=== PATIENT | female | born 2005 | race Caucasian/White ===

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

== ENCOUNTER 2024-01-13 17:48 | Emergency (ER) | payer BC ==
[2024-01-13] MEDS ORDERED: ISOVUE-370 76% 100ML VIAL As Ordered ONE (18:17)
[2024-01-13] MEDS: ACETAMINOPHEN *IV* 1,000 MG in IV 1 EA IV ONE (19:02)
[2024-01-13 19:15] VITALS: TEMP 98
[2024-01-13 23:00] VITALS: BP 115/52; O2SAT 98
== END 2024-01-13 23:08 | disposition left against medical advice (07) ==
LOC: M ED 17:48 → EDBD 17:48 → M ED 23:08
DX: Z04.2 Encounter for examination and observation following work accident (principal); Z53.9 Procedure and treatment not carried out, unspecified reason; N83.292 Other ovarian cyst, left side
CPT/HCPCS: 70450; 72072; 72125; 73564; 74177; 96365; 99284; J0131; Q9967

== ENCOUNTER → 2025-02-04 | Outpatient (CLI) | payer BC ==
[2025-02-04 18:19] LABS: ESTIMATED AVERAGE GLUCOSE 91.0 MG/DL (60-110)
[2025-02-04 18:22] LABS: CHOLESTEROL LEVEL 138 MG/DL (<200); CHOLESTEROL RISK RATIO 2.88 (<5); GLUCOSE,RANDOM 57 MG/DL (LESS THAN 200); LDL CHOLESTEROL 78.0 MG/DL (<100); NON-HDL-C 90.2 MG/DL; TRIGLYCERIDES LEVEL 61 MG/DL (<150)
[2025-02-04 18:23] LABS: HCG, SERUM QUALITATIVE NEGATIVE (NEGATIVE); LUTEINIZING HORMONE 13.4 mIU/ML; PROLACTIN 11.35 NG/ML; TESTOSTERONE 32 NG/DL (14-76)
[2025-02-06 09:44] LABS: DEHYDROEPIANDROSTERONE SULFATE 276.0 mcg/dL (44-286)
[2025-02-06 11:07] LABS: INSULIN TOTAL2 14.7 uIU/mL (<=18.4)
== END ==
LOC: M WUC 15:25
PROVIDERS: ATTEND Obstetrics & Gynecology Obstetrics
DX: E28.2 Polycystic ovarian syndrome (principal)